=== PATIENT | female | born 1995 | race Caucasian/White ===

== ENCOUNTER 2022-08-08 05:43 | Emergency (ER) | payer BC ==
[~2022-08-08] VITALS: Ht 160 cm; Wt 45.4 kg
[2022-08-08 05:48] VITALS: BP_SYST 143
--- NOTE | 2022-08-08 05:54 | NUR ---
PT HERE C/O LLQ ABDOMINAL PAIN WITH NAUSEA. PT STATED HE WPKE UP AROUND 0400 D/T PAIN. DENIES V/D, DENIES DYSURIA, SHE STATED THAT SHE WNT URGENT CARE YESTERDAY. PT DENIES FEVER PMH:DENIES PT AAOX4, NO SOB NOTED. PENDING MD CASTILLO
[2022-08-08] MEDS ORDERED: NACL 0.9% 1,000 ML IV ONE (06:45)
[2022-08-08] MEDS ORDERED: KETOROLAC TROMETHAMINE 30 MG VIAL IVP ONE (06:45)
[2022-08-08] MEDS ORDERED: ONDANSETRON HCL 4 MG/2 ML VIAL IVP ONE (06:45)
[2022-08-08] MEDS ORDERED: MORPHINE 4 MG INJ. 4 MG/ML VIAL IVP ONE ×2 (06:45→08:15)
[2022-08-08 07:11] LABS: BASOPHILS % (AUTO) 0.3 % (0.0-2.0); EOSINOPHILS # (AUTO) 0.1 K/uL (0.0-0.4); EOSINOPHILS % (AUTO) 1.1 % (0.0-4.0); HEMATOCRIT 44.5 % (36-48); LYMPHOCYTES # (AUTO) 2.6 K/uL (1.0-5.5); MEAN CORPUSCULAR VOLUME 93 fL (79.0-98.0); MONOCYTES # (AUTO) 0.4 K/uL (0.0-1.0); MONOCYTES % (AUTO) 4.4 % (1.7-9.3); NEUTROPHILS # (AUTO) 5.2 K/uL (1.8-7.7); NEUTROPHILS % (AUTO) 63.2 % (40.0-70.0); PLATELET COUNT (AUTO) 200 K/uL (130-430); RED BLOOD CELL COUNT(AUTO) 4.79 MIL/uL (4.2-6.2); RED CELL DISTRIBUTION WIDTH 13.3 % (9.0-15.0); WHITE BLOOD COUNT (AUTO) 8.3 K/uL (4.8-10.8)
--- NOTE | 2022-08-08 07:15 | NUR ---
Received report from CLARA Gomez to assume care of patient. Patient observed resting on gurney in no acute distress. Will provide care as ordered.
--- NOTE | 2022-08-08 07:27 | NUR ---
MISSY Scherer at bedside examining patient.
[2022-08-08 07:28] LABS: BILIRUBIN,URINE NEGATIVE (NEGATIVE); BLOOD, URINE 3+ (NEGATIVE); COLOR,URINE YELLOW (YELLOW); GLUCOSE,URINE NEGATIVE (NEGATIVE); KETONES,URINE NEGATIVE (NEGATIVE); LEUKOCYTE ESTERASE ,URINE NEGATIVE (NEGATIVE); NITRITE, URINE NEGATIVE (NEGATIVE); PH,URINE 5.5 (5.0-8.0); PROTEIN URINE NEGATIVE (NEGATIVE); UROBILINOGEN,URINE 0.2 (0.2-1.0)
[2022-08-08 07:38] LABS: CLARITY/URINE SLIGHTLY HAZY (CLEAR)
[2022-08-08 07:39] LABS: BACTERIA,URINE RARE /HPF (None Seen); WBC,URINE 0-3 /HPF (0-3)
[2022-08-08 07:58] LABS: CALCIUM 9.6 mg/dL (8.4-11.0); CREATININE 1.01 mg/dL (0.55-1.30); POTASSIUM 3.3 mmol/L (3.5-5.1)
[2022-08-08 08:03] LABS: ALBUMIN 4.3 g/dL (3.4-4.8); TOTAL BILIRUBIN 0.6 mg/dL (0.0-1.0)
[2022-08-08] MEDS ORDERED: PERC10 PO (08:14)
[2022-08-08] MEDS ORDERED: POTASSIUM CHLORIDE 20 MEQ TAB.PRT.SR PO ONE (08:15)
[2022-08-08] MEDS ORDERED: POTASSIUM CHLORIDE 20 MEQ/PKT PACKET PO ONE (08:30)
--- NOTE | 2022-08-08 09:10 | NUR ---
Patient expressed difficulty taking the KCl tablets. Spoke with MD and requested KCl packets. Ordered was changed and drink was administered. Patient tolerated well.
--- NOTE | 2022-08-08 09:20 | NUR ---
Patient given written and verbal discharge instructions and verbalizes understanding. ER MD discussed with patient the results and treatment provided. Patient in stable condition. ID arm band removed. IV catheter removed intact and dressing applied, no active bleeding. Rx of Oxycodone given. Patient educated on pain management and to follow up with PMD. Pain Scale 1/10. Opportunity for questions provided and answered. Medication side effect fact sheet provided.
== END 2022-08-08 09:20 | disposition home or self-care (01) ==
LOC: SED 05:43
DX: N20.1 Calculus of ureter (principal); R10.12 Left upper quadrant pain; R11.2 Nausea with vomiting, unspecified; K59.09 Other constipation; Z79.899 Other long term (current) drug therapy
CPT/HCPCS: 99284; 74176; 96374; 96375; 96361; 80053; 81000; 83690; 85025; 36415; 76376; 96376; 81025; J1885; J2405; J2270; J7030

== ENCOUNTER 2022-08-10 20:45 | Emergency (ER) | payer BC ==
[~2022-08-10] VITALS: Ht 160 cm; Wt 54.4 kg
[~2022-08-10 20:45] MED LIST: PERC10 PO
[2022-08-10 21:05] VITALS: BP_SYST 142
--- NOTE | 2022-08-10 21:24 | NUR ---
Pt brought by partner, A&Ox4, pt presents to ER with R flank pain , pt states she got diagnosed with kidney stones last sue and has been taking oxycodone for pain but it is not working, pt afebrile, VSS.
[2022-08-10] MEDS ORDERED: KETOROLAC TROMETHAMINE 30 MG VIAL IVP ONE (22:30)
[2022-08-10] MEDS ORDERED: NACL 0.9% 1,000 ML IV ONE (22:30)
[2022-08-10 23:00] LABS: BASOPHILS % (AUTO) 0.3 % (0.0-2.0); EOSINOPHILS # (AUTO) 0.1 K/uL (0.0-0.4); EOSINOPHILS % (AUTO) 0.8 % (0.0-4.0); HEMATOCRIT 39.9 % (36-48); LYMPHOCYTES # (AUTO) 1.4 K/uL (1.0-5.5); MEAN CORPUSCULAR VOLUME 91 fL (79.0-98.0); MONOCYTES # (AUTO) 0.8 K/uL (0.0-1.0); MONOCYTES % (AUTO) 6.1 % (1.7-9.3); NEUTROPHILS # (AUTO) 10.3 K/uL (1.8-7.7); NEUTROPHILS % (AUTO) 81.8 % (40.0-70.0); PLATELET COUNT (AUTO) 153 K/uL (130-430); RED BLOOD CELL COUNT(AUTO) 4.37 MIL/uL (4.2-6.2); RED CELL DISTRIBUTION WIDTH 13.1 % (9.0-15.0); WHITE BLOOD COUNT (AUTO) 12.6 K/uL (4.8-10.8)
[2022-08-10] MEDS ORDERED: MORPHINE 4 MG INJ. 4 MG/ML VIAL IVP ONE (23:30)
[2022-08-10 23:41] LABS: BILIRUBIN,URINE NEGATIVE (NEGATIVE); BLOOD, URINE 2+ (NEGATIVE); CLARITY/URINE SL CLOUDY (CLEAR); COLOR,URINE YELLOW (YELLOW); GLUCOSE,URINE NEGATIVE (NEGATIVE); KETONES,URINE NEGATIVE (NEGATIVE); LEUKOCYTE ESTERASE ,URINE NEGATIVE (NEGATIVE); NITRITE, URINE NEGATIVE (NEGATIVE); PH,URINE 8.5 (5.0-8.0); PROTEIN URINE NEGATIVE (NEGATIVE); UROBILINOGEN,URINE 0.2 (0.2-1.0)
[2022-08-10 23:52] LABS: BACTERIA,URINE None Seen /HPF (None Seen); MUCUS,URINE None Seen /LPF (None Seen); RBC,URINE 0-3 /HPF (0-3); URINE AMORPHOUS PHOSPHATES 1+ /HPF (None Seen); WBC,URINE 0-3 /HPF (0-3)
[2022-08-11 00:45] LABS: CALCIUM 9.2 mg/dL (8.4-11.0); CREATININE 1.2 mg/dL (0.55-1.30); POTASSIUM 3.4 mmol/L (3.5-5.1)
[2022-08-11 00:53] LABS: ALBUMIN 3.9 g/dL (3.4-4.8); TOTAL BILIRUBIN 0.5 mg/dL (0.0-1.0)
[2022-08-11] MEDS ORDERED: NAPR-1172 PO (01:29)
[2022-08-11] MEDS ORDERED: ONDA-8 TL (01:54)
[2022-08-11] MEDS ORDERED: MORPHINE 4 MG INJ. 4 MG/ML VIAL IVP ONE (02:00)
[2022-08-11 02:26] VITALS: BP_SYST 123
--- NOTE | 2022-08-11 02:27 | NUR ---
Patient given written and verbal discharge instructions and verbalizes understanding. ER MD Portillo discussed with patient the results and treatment provided. Patient in stable condition. ID arm band removed. IV catheter removed intact and dressing applied, no active bleeding. Rx sent to pharmacy of choice. Patient educated on pain management and to follow up with PMD. Pain Scale 2/10. Opportunity for questions provided and answered. Medication side effect fact sheet provided.
== END 2022-08-11 02:26 | disposition home or self-care (01) ==
LOC: SED 20:45
DX: N23 Unspecified renal colic (principal); N20.0 Calculus of kidney; M54.50 Low back pain, unspecified; R11.0 Nausea; Z79.899 Other long term (current) drug therapy
CPT/HCPCS: 99284; 74176; 96374; 96361; 96375; 80053; 81000; 85025; 36415; 76376; 81025; 96376; J1885; J2270 ×2; J7030